=== PATIENT | male | born 1980 | race American Indian/Alaskan Native ===

== ENCOUNTER 2022-01-24 12:52 | Emergency (ER) | payer OTHER ==
[2022-01-24 13:12] VITALS: BP 142/89
[2022-01-24] MEDS ORDERED: KETOROLAC 60 MG/2 ML INJ IM ONE (17:15)
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
== END 2022-01-24 18:57 | disposition home or self-care (01) ==
LOC: ED 12:52
DX: M54.40 Lumbago with sciatica, unspecified side (principal); V89.2XXA Person injured in unspecified motor-vehicle accident, traffic, initial encounter; Y93.89 Activity, other specified; Y92.89 Other specified places as the place of occurrence of the external cause; Y99.8 Other external cause status
CPT/HCPCS: 72100; 96372; 99283; J1885